=== PATIENT | male | born 1965 | race Caucasian/White ===

== ENCOUNTER → 2019-10-24 | Outpatient (CLI) | payer BC ==
--- NOTE | 2019-10-24 16:18 | RAD ---
CHEST PA LATERAL Clinical indications: Cough. Pneumonia. COMPARISON: None available. Findings: Bilateral peribronchial thickening is seen consistent with bronchitis. No lung consolidation or pleural effusion or lung mass or pneumothorax is seen. The heart size, pulmonary vasculature, mediastinum and both ciara are unremarkable. The osseous structures appear intact. Impression: Bilateral bronchitis. No consolidative pneumonia. Electronically signed by: Tello Black MD (10/24/2019 4:15 PM) [id number]
[2019-10-24 21:46] LABS: BASO # 0.1 x10^3/uL (0.0-0.2); BASO % 1 % (0-3); EOS % 0 % (0-3); HEMATOCRIT 49.2 % (39.0-53.0); HEMOGLOBIN 16.4 g/dL (13.0-17.5); LYMPH # 1.1 x10^3/uL (1.0-4.8); LYMPH % 12 % (24-48); MEAN CORPUSCULAR HEMOGLOBIN 30 pg (25-35); MEAN CORPUSCULAR HGB CONC 33 g/dL (31-37); MEAN CORPUSCULAR VOLUME 91 fL (79-100); MONO # 0.6 x10^3/uL (0.0-1.1); MONO % 6 % (0-9); NEUT # 7.6 x10^3uL (1.8-7.7); NEUT % 81 % (31-73); PLATELET COUNT 204 x10^3/uL (140-400); RED BLOOD COUNT 5.42 x10^6/uL (4.30-5.70); RED CELL DISTRIBUTION WIDTH 13.4 % (11.5-14.5); WHITE BLOOD COUNT 9.4 x10^3/uL (4.0-11.0)
[2019-10-24 21:54] LABS: ALBUMIN 3.6 g/dL (3.4-5.0); ALBUMIN/GLOBULIN RATIO 0.9 (1.0-1.7); CALCIUM 8.6 mg/dL (8.5-10.1); CREATININE 1.3 mg/dL (0.7-1.3); POTASSIUM 3.9 mmol/L (3.5-5.1); TOTAL BILIRUBIN 0.7 mg/dL (0.2-1.0); TOTAL PROTEIN 7.8 g/dL (6.4-8.2)
== END | disposition home or self-care (01) ==
LOC: LAB 15:56
PROVIDERS: ATTEND Family Medicine
DX: J40 Bronchitis, not specified as acute or chronic (principal); J15.9 Unspecified bacterial pneumonia
CPT/HCPCS: 36415; 71046; 80053; 85025; 87040

== ENCOUNTER → 2020-05-14 | Outpatient (CLI) | payer BC ==
--- NOTE | 2020-05-14 15:38 | RAD ---
Exam: CT of abdomen and pelvis without contrast INDICATION: Hematuria, acute cystitis, fever TECHNIQUE: Sequential axial images through the abdomen and pelvis obtained without IV contrast. Sagittal and coronal reformatted images were reconstructed from the axial data and reviewed. Comparisons: None FINDINGS: Heart size is normal. No pericardial effusion. Visualized lung bases are clear. No pleural effusion. Evaluation of solid organs is limited secondary to noncontrast technique. Diffuse hepatic steatosis. Spleen, pancreas, gallbladder and adrenals are unremarkable. No perinephric inflammation or hydronephrosis. No renal or ureteral calculi are identified. Bladder is partially distended and not well evaluated. Prostate is is not enlarged. Few scattered diverticula are noted at the sigmoid colon without evidence of acute diverticulitis. Remainder of the large and small bowel are unremarkable. Appendix is normal. No free intra-abdominal air or fluid. No obstruction. Abdominal aorta has a normal course and caliber. Abdominal vasculature is patent. No enlarged abdominal lymph nodes are identified. No suspicious osseous lesions or acute fractures. IMPRESSION: 1. No renal or ureteral calculi. No evidence for obstructive uropathy. 2. Diffuse hepatic steatosis. Exposure: One or more of the following in the visualized dose reduction techniques were utilized for this examination: 1. Automated exposure control 2. Adjustment of the MA and/or KV according to patient size 3. Use of iterative of reconstructive technique Electronically signed by: Jovani Schmidt MD (05/14/2020 3:35 PM) [id number]
== END | disposition home or self-care (01) ==
LOC: CT 14:53
PROVIDERS: ATTEND Family Medicine
DX: K57.30 Diverticulosis of large intestine without perforation or abscess without bleeding (principal); K76.0 Fatty (change of) liver, not elsewhere classified; K57.92 Diverticulitis of intestine, part unspecified, without perforation or abscess without bleeding; N23 Unspecified renal colic; N32.89 Other specified disorders of bladder
CPT/HCPCS: 74176